=== PATIENT | male | born 1990 | race African-American/Black ===

== ENCOUNTER 2017-08-26 12:40 | Emergency (ER) | payer OTHER ==
[2017-08-26] MEDS ORDERED: Adacel (T-DAP) 0.5 ML VIAL ONE (13:14)
[2017-08-26] MEDS ORDERED: Bupivacaine 0.5% 10 ML VIAL ONE (13:20)
--- NOTE | 2017-08-26 13:59 | RAD ---
LEFT MIDDLE FINGER THREE VIEWS: History: Left finger injury. FINDINGS: Extensively, ==== crush injury involves the distal tuft of the distal phalanx with displacement of m ajor fragments up to 0.4 cm. Overlying soft tissue lacerations also apparent. No intraarticular extension of the fracture is evident. No metallic foreign bodies. IMPRESSION: Extensive soft tissue and osseous laceration of the distal phalanx left middle finger. POS: [facility]
[2017-08-26] MEDS ORDERED: Bacitracin Zinc 1 Packet ONE (14:22)
== END 2017-08-26 14:45 | disposition home or self-care (01) ==
LOC: NAV ERS 12:40
DX: S68.123A Partial traumatic metacarpophalangeal amputation of left middle finger, initial encounter (principal); Z23 Encounter for immunization; V86.99XA Unspecified occupant of other special all-terrain or other off-road motor vehicle injured in nontraffic accident, initial encounter
CPT/HCPCS: 11760; 90471; 90715; J3490